=== PATIENT | female | born 1945 | race Caucasian/White ===

== ENCOUNTER 2017-04-25 13:29 | Emergency (ER) | payer BC ==
[2017-04-25 14:04] VITALS: BP 139/68
--- NOTE | 2017-04-25 15:00 | ED ---
Respiratory - HPI Summary HPI Summary: URI and congestion for the past few days. The cough started a few days ago and it is harsh. no obvious fever. no chills. no hemoptysis. No sob at rest. - History of Current Complaint Chief Complaint: UCRespiratory Stated Complaint: COUGH Time Seen by Provider: 04/25/17 14:39 Hx Obtained From: Patient Onset/Duration: Gradual Onset, Lasting Days Initial Severity: Mild Current Severity: Moderate Character: Cough (Nonproductive) Sputum Amount: Scant Sputum Color: Clear Aggravating Factor(s): Nothing Alleviating Factor(s): Nothing Associated Signs and Symptoms: URI, Nasal Congestion Related History: Similar Episode/Dx as - prior bronchitis and early pneumonia. - Allergy/Home Medications Allergies/Adverse Reactions: Allergies Allergy/AdvReac Type Severity Reaction Status Date / Time No Known Allergies Allergy Verified 04/25/17 14:04 Home Medications: Home Medications Atorvastatin* [Lipitor*] 10 mg PO DAILY 04/25/17 [History Confirmed 04/25/17] Menthol (Mouth-Throat) [Cough Drops] 7 mg MT SEE INSTRUCTIONS PRN 04/25/17 [ History Confirmed 04/25/17] PMH/Surg Hx/FS Hx/Imm Hx Previously Healthy: No - bronchitis. - Surgical History Surgery Procedure, Year, and Place: Right humerous fx with pin Infectious Disease History: No Infectious Disease History: Denies: Traveled Outside the [place] in Last 30 Days - Family History Known Family History: Positive: Other - mother had hx of pneumonia. - Social History Occupation: Employed Full-time Alcohol Use: Weekly Alcohol Amount: 6 Substance Use Type: Reports: None Smoking Status (MU): Former Smoker Review of Systems Positive: Sore Throat, Nasal Discharge Positive: Cough All Other Systems Reviewed And Are Negative: Yes Physical Exam Triage Information Reviewed: Yes Vital Signs On Initial Exam: Initial Vitals Temp Pulse Resp BP Pulse Ox 100 F 81 20 139/68 98 04/25/17 13:55 04/25/17 13:55 04/25/17 13:55 04/25/17 13:55 04/25/17 13:55 Vital Signs Reviewed: Yes Appearance: Positive: Well-Appearing, No Pain Distress, Well-Nourished Skin: Positive: Warm Eyes: Positive: Normal, EOMI ENT: Positive: Normal ENT inspection Neck: Positive: Supple, Nontender, No Lymphadenopathy Respiratory/Lung Sounds: Positive: Clear to Auscultation, Breath Sounds Present , Unable to speak in full sentences. Negative: Decreased Breath Sounds, Rales, Rhonchi, Stridor, Wheezes Cardiovascular: Positive: Normal, RRR. Negative: Murmur, Leg Edema Left, Leg Edema Right Abdomen Description: Positive: Nontender, No Organomegaly, Soft. Negative: Distended Musculoskeletal: Positive: Normal. Negative: Edema Left, Edema Right Neurological: Positive: Normal, Sensory/Motor Intact, Alert, Oriented to Person Place, Time Psychiatric: Positive: Normal Diagnostics - Vital Signs Vital Signs Temp Pulse Resp BP Pulse Ox 04/25/17 13:55 100 F 81 20 139/68 98 - Laboratory Lab Statement: Any lab studies that have been ordered have been reviewed, and results considered in the medical decision making process. Disposition - Course Assessment/Plan: we discussed supportive care in detail. She will start z pack if not improved after 5 days. - Diagnoses Provider Diagnoses: Acute bronchitis Discharge - Discharge Plan Condition: Good Disposition: HOME Prescriptions: Azithromyxin YOLANDA (NF) [Z-Yolanda (Zithromax) 250 mg tabs #6] 1 tab PO .TODAY, THEN 1 DAILY #6 tab guaiFENesin/CODIEN 100MG-10MG* [Robitussin AC 100Mg-10Mg*] 10 ml PO Q4H PRN # 200 udc MDD 40 PRN Reason: Cough Patient Education Materials: Acute Bronchitis (ED) Referrals: Andree Beck MD [Primary Care Provider] - If Needed
== END 2017-04-25 15:05 | disposition home or self-care (01) ==
LOC: UCCORT 13:29
DX: J20.9 Acute bronchitis, unspecified (principal); Z87.891 Personal history of nicotine dependence
CPT/HCPCS: 99202; G0463

== ENCOUNTER 2017-05-12 09:28 | Emergency (ER) | payer BC ==
[2017-05-12 09:38] VITALS: BP 157/77
--- NOTE | 2017-05-12 10:07 | UC ---
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 C/o numbness. - History of Current Complaint Chief Complaint: UCUpperExtremity Stated Complaint: NECK PAIN Time Seen by Provider: 05/12/17 10:01 Hx Obtained From: Patient ?: No Onset/Duration Of Injury/Symptoms: Days - 3 Mechanism Of Injury: No Known Trauma Onset/Duration: Gradual Onset - Started and was better by the but returned this morning., Worse Since - This morning. Severity: Mild Location: Discrete At: - right side of the neck, Radiates To: - the top of the shoulder Character: Sharp Aggravating Factors: Position, Movement Alleviating Factors: Position Associated Signs & Symptoms: Positive: Negative - Allergies/Home Medications Allergies/Adverse Reactions: Allergies Allergy/AdvReac Type Severity Reaction Status Date / Time No Known Allergies Allergy Verified 05/12/17 09:38 Home Medications: Home Medications Acetaminophen [Acetaminophen Extra Stren] 1,000 mg PO DAILY PRN 05/12/17 [ History Confirmed 05/12/17] Alendronate Sodium [Fosamax-] 1 tab PO WEEKLY 05/12/17 [History Confirmed ] Calcium 1 tab PO DAILY 05/12/17 [History Confirmed 05/12/17] PMH/Surg Hx/FS Hx/Imm Hx Previously Healthy: Yes - Surgical History Surgical History: Yes Surgery Procedure, Year, and Place: Right humerous fx with pin - Family History Known Family History: Positive: Cardiac Disease, Diabetes, Other - mother had hx of pneumonia. Negative: Hypertension - Social History Occupation: Employed Full-time Lives: Alone - with BF Alcohol Use: Daily Alcohol Amount: 1 glass with dinner Substance Use Type: None Smoking Status (MU): Former Smoker Have You Smoked in the Last Year: No Household Exposure Type: Cigarettes - Immunization History Most Recent Influenza Vaccination: Not UTD Review Of Systems Musculoskeletal: Positive: Arthralgia Neurological: Positive: Numbness - in the back of the neck. All Other Systems Reviewed And Are Negative: Yes Physical Exam Triage Information Reviewed: Yes Appearance: Well-Appearing, No Pain Distress, Well-Nourished Vital Signs: Initial Vital Signs Temp 98.6 F 05/12/17 09:33 Pulse 68 05/12/17 09:33 Resp 16 05/12/17 09:33 BP 157/77 10/28/17 09:33 Pulse Ox 100 05/12/17 09:33 Vital Signs Reviewed: Yes Eyes: Positive: Conjunctiva Clear ENT: Positive: Pharynx normal, TMs normal Neck: Positive: Supple, Tenderness @ - right cervical levators Respiratory Exam: Normal Cardiovascular Exam: Normal Musculoskeletal: Positive: Other: - muscle knots in the right trapezius Neurological Exam: Normal Psychological Exam: Normal Skin Exam: Normal Neck Pain Course/Dx - Differential Dx/Diagnosis Differential Dx/HQI/PQRI: Sprain, Strain, Torticollis Provider Diagnoses: Cervicalgia Discharge - Discharge Plan Condition: Stable Disposition: HOME Prescriptions: Cyclobenzaprine TAB* [Flexeril 10 MG TAB*] 10 mg PO TID PRN #10 tab PRN Reason: Pain Patient Education Materials: Cervical Strain (ED), Muscle Spasm (ED) Additional Instructions: Use massage with analgesic balm to help the trigger points.
== END 2017-05-12 10:35 | disposition home or self-care (01) ==
LOC: UCCORT 09:28
DX: M54.2 Cervicalgia (principal); Z87.891 Personal history of nicotine dependence
CPT/HCPCS: 99212; G0463

== ENCOUNTER 2018-10-06 13:32 | Emergency (ER) | payer BC ==
[2018-10-06 13:58] VITALS: BP 156/68
--- NOTE | 2018-10-06 14:19 | UC ---
Hand/Wrist HPI - HPI Summary HPI Summary: B/l hand redness from distal metacarpals to finger tips noticed today; no pain, no injury. Pt has tingling in left hand in same areas. Pt reports hands are "always cold". Pt is concerned if sx are r/t heart conditiion. Initial BP reading =143/75 - History Of Current Complaint Chief Complaint: UCSkin Stated Complaint: BILATERAL HAND CONCERN Time Seen by Provider: 10/06/18 13:45 Hx Obtained From: Patient ?: No Onset/Duration: Sudden Onset, Lasting Days Severity Initially: Mild Severity Currently: Mild Pain Intensity: 0 Alleviating Factor(s): Nothing Associated Signs And Symptoms: Positive: Redness - Allergies/Home Medications Allergies/Adverse Reactions: Allergies Allergy/AdvReac Type Severity Reaction Status Date / Time No Known Allergies Allergy Verified 10/06/18 13:58 Home Medications: Home Medications Acetaminophen [Acetaminophen Extra Strength] 1,000 mg PO SEE INSTRUCTIONS [History Confirmed 10/06/18] Cholecalciferol TAB* [Vitamin D TAB*] 2,000 units PO BID 10/06/18 [History Confirmed 10/06/18] PMH/Surg Hx/FS Hx/Imm Hx Previously Healthy: Yes - Surgical History Surgical History: Yes Surgery Procedure, Year, and Place: Right humerous fx with pin - Family History Known Family History: Positive: Cardiac Disease, Diabetes, Other - mother had hx of pneumonia. Negative: Hypertension - Social History Alcohol Use: Daily Alcohol Amount: 1 glass with dinner Substance Use Type: None Smoking Status (MU): Former Smoker Have You Smoked in the Last Year: No Household Exposure Type: Cigarettes - Immunization History Most Recent Influenza Vaccination: Not UTD Review of Systems All Other Systems Reviewed And Are Negative: Yes Constitutional: Positive: Negative Skin: Positive: Other - redness and nails white Eyes: Positive: Negative ENT: Positive: Negative Respiratory: Positive: Negative Cardiovascular: Positive: Negative Gastrointestinal: Positive: Negative Genitourinary: Positive: Negative Motor: Positive: Negative Neurovascular: Positive: Negative Musculoskeletal: Positive: Negative Neurological: Positive: Negative Psychological: Positive: Negative Is Patient Immunocompromised?: No Physical Exam Triage Information Reviewed: Yes Appearance: Well-Appearing, No Pain Distress, Well-Nourished Vital Signs: Initial Vital Signs Temp 98.8 F 03/24/19 13:47 Pulse 62 10/06/18 13:47 Resp 18 10/06/18 13:47 BP 156/68 10/06/18 13:47 Pulse Ox 99 10/06/18 13:47 Vital Signs Reviewed: Yes Eye Exam: Normal ENT Exam: Normal Dental Exam: Normal Neck exam: Normal Respiratory Exam: Normal Cardiovascular Exam: Normal Abdominal Exam: Normal Bowel Sounds: Positive: Present Musculoskeletal Exam: Normal Neurological Exam: Normal Psychological Exam: Normal Skin: Positive: Other - all fingers are red, and the nail beds white and pale. not painful, slightly chapped, hands cold to touch Hand/Wrist Course/Dx - Course Course Of Treatment: hx obtained, exam performed ,meds reviewed, reviewed symptoms of raynauds with patient. - Differential Dx/Diagnosis Differential Diagnosis/HQI/PQRI: Cellulitis, Other - raynauds, [place] bite Provider Diagnosis: Discoloration of skin of hand Discharge - Sign-Out/Discharge Documenting (check all that apply): Patient Departure All imaging exams completed and their final reports reviewed: No Studies - Discharge Plan Condition: Stable Disposition: HOME Patient Education Materials: Raynaud Disease (ED) Referrals: Andree Beck MD [Primary Care Provider] - Additional Instructions: 1. I am not sure what is causeing the redness and discoloration of the fingernails. I would guess Raynauds. 2. I receommend going home soaking hands in war water, dry completely and moisturize. 3. If this persist follow up with your PCP. - Billing Disposition and Condition Condition: STABLE Disposition: Home
== END 2018-10-06 14:25 | disposition home or self-care (01) ==
LOC: UCCORT 13:32
DX: R23.8 Other skin changes (principal); Z87.891 Personal history of nicotine dependence
CPT/HCPCS: 99211; G0463